=== PATIENT | male | born 2000 | race Two or more races ===

== ENCOUNTER 2021-09-10 01:50 | Emergency (ER) | payer MEDICAID ==
[~2021-09-10] VITALS: Ht 165.1 cm; Wt 81.6 kg
[2021-09-10 02:05] VITALS: BP 143/67
== END 2021-09-10 02:15 | disposition home or self-care (01) ==
LOC: ER 02:10
DX: F41.0 Panic disorder [episodic paroxysmal anxiety] (principal)

== ENCOUNTER 2022-09-22 21:08 | Emergency (ER) | payer MEDICAID, OTHER ==
[~2022-09-22] VITALS: Ht 165.1 cm; Wt 73.9 kg
--- NOTE | 2022-09-22 22:48 | NUR ---
SEEN AND EXAMINED BY OMEGA CONTE
--- NOTE | 2022-09-22 22:50 | NUR ---
BIBSELF FROM HOME C/O EPIGASTRIC PAIN +N/V. PATIENT IS AAOX4. AMBULATORY. ABLE TO MAKE NEEDS KNOWN. ASSISTED TO CHAIR. VITALS CHECKED.
[2022-09-22] MEDS ORDERED: KETOROLAC TROMETHAMINE INJ 30 MG/ML VIAL ONE (22:54)
[2022-09-22] MEDS ORDERED: LIDOCAINE VISCOUS 2% UD 15 ML UDC MM ONE (23:00)
[2022-09-22] MEDS ORDERED: KETOROLAC TROMETHAMINE INJ 60 MG/2 ML VIAL IM ONE (23:00)
[2022-09-22] MEDS ORDERED: ONDANSETRON 4 MG TAB.RAPDIS SL ONE (23:00)
[2022-09-22] MEDS ORDERED: MAG HYDROX/AL HYDROX/SIMETH 30 ML UDC PO ONE (23:00)
--- NOTE | 2022-09-22 23:07 | NUR ---
CXR DONE BY SUPPLY AIDE
[2022-09-23] MEDS ORDERED: NAPR500T6 PO (00:11)
--- NOTE | 2022-09-23 00:21 | NUR ---
Patient discharged to home in stable condition. Written and verbal after care instructions given. Patient verbalizes understanding of instruction.
[2022-09-23 00:22] VITALS: BP 134/72
== END 2022-09-23 00:22 | disposition home or self-care (01) ==
LOC: ER 21:14
DX: R10.13 Epigastric pain (principal)
CPT/HCPCS: 99283; 71045; 96372; J1885

== ENCOUNTER 2022-10-05 20:39 | Emergency (ER) | payer MEDICAID ==
[~2022-10-05] VITALS: Ht 165.1 cm; Wt 78.5 kg
[~2022-10-05 20:39] MED LIST: NAPR500T6 PO
--- NOTE | 2022-10-05 21:15 | NUR ---
CLAU FROM HOME COMPLAINING OF LEFT LOWER ABDOMEN DISCOMFORT 07/22. PATIENT IS AAOX4. ABLE TO MAKE NEEDS KNOWN. PLACED COMFORTABLY IN CHAIR.
--- NOTE | 2022-10-05 21:40 | NUR ---
URINE SPECIMEN SENT TO LAB
--- NOTE | 2022-10-05 21:41 | NUR ---
RAILROAD REPAIRER DRAWING BLOOD FOR PT
[2022-10-05 21:55] LABS: BASOPHILS % (AUTO) 0.5 % (0.0-2.0); EOSINOPHILS % (AUTO) 0.9 % (0.0-6.0); HEMATOCRIT 42 % (39-51); HEMOGLOBIN 13.7 g/dL (13.5-17.5); LYMPHOCYTES # (AUTO) 1.6 K/uL (0.8-4.8); LYMPHOCYTES % (AUTO) 31.5 % (20.0-44.0); MEAN CORPUSCULAR HGB CONC 33 g/dl (31.0-36.0); MEAN CORPUSCULAR VOLUME 88 fL (80-96); MONOCYTES # (AUTO) 0.6 K/uL (0.1-1.30); MONOCYTES % (AUTO) 10.7 % (2.0-12.0); NEUTROPHILS # (AUTO) 2.9 K/uL (1.8-8.9); NEUTROPHILS % (AUTO) 56.4 % (43.0-81.0); PLATELET COUNT (AUTO) 348 K/uL (150-450); RED BLOOD CELL COUNT(AUTO) 4.72 MIL/uL (4.5-6.0); WHITE BLOOD COUNT (AUTO) 5.2 K/uL (4.3-11.0)
[2022-10-05 22:11] LABS: ALBUMIN 4.5 g/dL (3.4-5.0); BILIRUBIN,DIRECT 0.2 mg/dL (0.0-0.2); BILIRUBIN,TOTAL 0.6 mg/dL (0.2-1.0); CALCIUM, SERUM 9.4 mg/dL (8.5-10.1); CREATININE 1.3 mg/dL (0.6-1.3); POTASSIUM 3.9 mmol/L (3.5-5.1); TOTAL PROTEIN, SERUM 7.6 g/dL (6.4-8.2)
[2022-10-05 22:49] LABS: BILIRUBIN,URINE NEGATIVE (NEGATIVE); COLOR,URINE YELLOW (YELLOW); LEUKOCYTE ESTERASE ,URINE NEGATIVE (NEGATIVE); NITRITE, URINE NEGATIVE (NEGATIVE); PROTEIN,URINE NEGATIVE (NEGATIVE); UGLUCOSE NEGATIVE (NEGATIVE); UROBILINOGEN,URINE 0.2 EU/dL (0.2)
[2022-10-05 23:14] VITALS: BP 122/74
--- NOTE | 2022-10-05 23:14 | NUR ---
Patient discharged to home in stable condition. Written and verbal after care instructions given. Patient verbalizes understanding of instruction.
== END 2022-10-05 23:15 | disposition home or self-care (01) ==
LOC: ER 20:40
DX: R10.32 Left lower quadrant pain (principal)
CPT/HCPCS: 36415; 80048-TC; 80076-TC; 83690-TC; 85025-TC